=== PATIENT | female | born 1975 | race Caucasian/White ===

== ENCOUNTER 2017-03-07 18:52 | Emergency (ER) | payer OTHER ==
[2017-03-07] MEDS ORDERED: NS 500 ML IV ONE (19:16)
[2017-03-07] MEDS ORDERED: KETOROLAC 30 MG/1 ML SDV IVP ONE (19:16)
--- NOTE | 2017-03-07 19:19 | EDPHY ---
H & P Time Seen by Provider: 03/07/17 19:05 HPI/ROS: CHIEF COMPLAINT: Right upper quadrant pain HISTORY OF PRESENT ILLNESS: The patient is a 41-year-old female who presents emergency department with right upper quadrant pain starting at around 4:00 p.m. The patient states he had a diet Coke prior to the onset D does not feel this is related. She describes sharp stabbing pain in the right upper quadrant. This is worse when she takes a breath. She has not feel short of breath. She had no cough. She had mild nausea but no vomiting. No diarrhea. She has had mild urinary urgency with minimal frequency but no hematuria or dysuria. The patient denies flank pain. Pain does not radiate. She has had no fevers or chills. No leg pain or swelling. No recent travel. The patient has a history of ovarian cyst 1 month ago. REVIEW OF SYSTEMS: My complete review of systems is negative except as mentioned in the HPI. Past Medical/Surgical History: Ovarian cyst Past surgical history: Ureteral stent placed during Social history: The patient is . She denies tobacco or alcohol use Physical Exam: Vitals noted GENERAL: Well-appearing, in no acute distress, alert. HEENT: Eyes normal to inspection, normal pharynx, no signs of dehydration. NECK: No thyromegaly, no lymphadenopathy, supple. RESPIRATORY: Clear to auscultation bilaterally, no rales, rhonchi or wheezing. CVS: Regular rate and rhythm, no rubs, murmurs, or gallops. ABDOMEN: Soft, right upper quadrant tenderness to palpation, nondistended, no organomegaly. BACK: Normal to inspection, no CVA tenderness. SKIN: Normal color, no rash, warm, dry. No pallor. EXTREMITIES: No pedal edema, no calf tenderness, no Homans sign or cords, no joint swelling. NEURO/PSYCH: Alert and oriented x3, normal mood and affect, normal motor sensory exam. No obvious cranial nerve deficit. Constitutional: Initial Vital Signs Temperature (C) 36.7 C 03/07/17 18:53 Heart Rate 59 L 03/07/17 18:53 Respiratory Rate 16 03/07/17 18:53 Blood Pressure 123/80 H 03/07/17 18:53 O2 Sat (%) 99 03/07/17 18:53 O2 Delivery Mode Room Air Allergies/Adverse Reactions: No Known Allergies Allergy (Unverified 03/07/17 19:23) Home Medications: Medication Instructions Recorded NK [No Known Home Meds] 03/07/17 Medical Decision Making - Diagnostics Imaging Results: Imaging Impressions Abdomen Ultrasound 03/07/17 19:16 Impression: 1. No cholelithiasis or biliary ductal dilation. 2. Minimal pericholecystic fluid, without gallbladder wall thickening. 3. Minimal fluid inferior to the right lobe of the liver, without hydronephrosis. 4. Two hyperechoic lesions up to 1.1 cm, probably representing hemangiomata. Findings and recommendations discussed with Emergency Department physician, Mary Grace M.D., at 2123 hours, on March 07, 2017. Final report concurs with initial preliminary interpretation. Chest X-Ray 03/07/17 19:19 Impression: No acute pulmonary disease. ED Course/Re-evaluation: In the emergency department I discussed possible etiologies with the patient. I answered all her questions. An IV was placed and laboratory studies were obtained. I ordered an ultrasound of the right upper quadrant. Patient given Toradol 30 mg IV. She states that she is currently on her menses and there is no chance of . Chest x-ray: No acute disease noted. The patient's CBC was normal. Chemistry panel is unremarkable. The patient's LFTs were normal. Lipase normal. The patient's D-dimer is elevated at 0.7. I discussed the results with the patient. She states she felt much better after receiving the Toradol. Her pain has mostly resolved. She has no pain with deep breathing. I am awaiting ultrasound results. I discussed the case with both the patient and her who is an emergency physician. Ultrasound: For the dictated report by Dr. Eitan Green. The patient has small amount of free fluid surrounding the gallbladder. The gallbladder wall is normal. No gallstones present. Normal caliber common bile duct. I discussed the results with both Dr. Campos and the patient. I answered all her questions. Patient has to her history that she has been mildly short of breath over the past week. She attributed this to her son who would recently returned home. She also reports that over the past year she has intermittently had swelling of her left lower extremity. CT angiogram of the chest was ordered with the patient's consent. CT angio of the chest: Please refer the dictated report by Dr. Eitan Green. No acute disease noted. No visible sign of PE. I discussed the results with the patient and her . I answered all her questions. Patient will be discharged home. She is given warnings prior to leaving. She will return with worsening symptoms. Differential Diagnosis: My differential includes but is not limited to cholecystitis, cholangitis, pancreatitis, ureterolithiasis, urinary tract infection, pyelonephritis, pneumothorax, pulmonary embolus, pleurisy - Data Points Laboratory Results: Laboratory Results 03/07/17 19:10 03/07/17 19:10 03/07/17 03/07/17 03/07/17 19:15 19:10 19:10 WBC RBC Hgb Hct MCV MCH MCHC RDW Plt Count MPV Neut % (Auto) Lymph % (Auto) [place] % (Auto) Eos % (Auto) Baso % (Auto) Nucleat RBC Rel Count Absolute Neuts (auto) Absolute Lymphs (auto) Absolute Monos (auto) Absolute Eos (auto) Absolute Basos (auto) Absolute Nucleated RBC Immature Gran % Immature Gran # D-Dimer 0.70 ug/mLFEU H ug/mLFEU (0.00-0.50) Sodium Potassium Chloride Carbon Dioxide Anion Gap BUN Creatinine Estimated GFR Glucose Calcium Total Bilirubin Conjugated Bilirubin Unconjugated Bilirubin AST ALT Alkaline Phosphatase Total Protein Albumin Lipase Beta HCG, Qual NEGATIVE Urine Color PALE YELLOW Urine Appearance CLEAR Urine pH 6.0 (5.0-7.5) Ur Specific [place] 1.011 (1.002-1.030) Urine Protein NEGATIVE (NEGATIVE) Urine Ketones TRACE H (NEGATIVE) Urine Blood NEGATIVE (NEGATIVE) Urine Nitrate NEGATIVE (NEGATIVE) Urine Bilirubin NEGATIVE (NEGATIVE) Urine Urobilinogen NEGATIVE EU EU (0.2-1.0) Ur Leukocyte Esterase NEGATIVE (NEGATIVE) Urine RBC 3-5 /hpf H /hpf (0-3) Urine WBC 1-3 /hpf /hpf (0-3) Ur Epithelial Cells TRACE /lpf /lpf (NONE-1+) Urine Mucus TRACE /lpf /lpf (NONE-1+) Urine Glucose NEGATIVE (NEGATIVE) 03/07/17 03/07/17 19:10 19:10 WBC 7.08 10^3/uL 10^3/uL (3.80-9.50) RBC 4.29 10^6/uL 10^6/uL (4.18-5.33) Hgb 13.5 g/dL g/dL (12.6-16.3) Hct 38.8 % % (38.0-47.0) MCV 90.4 fL fL (81.5-99.8) MCH 31.5 pg pg (27.9-34.1) MCHC 34.8 g/dL g/dL (32.4-36.7) RDW 13.2 % % (11.5-15.2) Plt Count 156 10^3/uL 10^3/uL (150-400) MPV 12.4 fL H fL (8.7-11.7) Neut % (Auto) 53.2 % % (39.3-74.2) Lymph % (Auto) 37.4 % % (15.0-45.0) [place] % (Auto) 6.1 % % (4.5-13.0) Eos % (Auto) 2.3 % % (0.6-7.6) Baso % (Auto) 0.7 % % (0.3-1.7) Nucleat RBC Rel Count 0.0 % % (0.0-0.2) Absolute Neuts (auto) 3.77 10^3/uL 10^3/uL (1.70-6.50) Absolute Lymphs (auto) 2.65 10^3/uL 10^3/uL (1.00-3.00) Absolute Monos (auto) 0.43 10^3/uL 10^3/uL (0.30-0.80) Absolute Eos (auto) 0.16 10^3/uL 10^3/uL (0.03-0.40) Absolute Basos (auto) 0.05 10^3/uL 10^3/uL (0.02-0.10) Absolute Nucleated RBC 0.00 10^3/uL 10^3/uL (0-0.01) Immature Gran % 0.3 % % (0.0-1.1) Immature Gran # 0.02 10^3/uL 10^3/uL (0.00-0.10) D-Dimer Sodium 141 mEq/L mEq/L (134-144) Potassium 4.0 mEq/L mEq/L (3.5-5.2) Chloride 107 mEq/L mEq/L (97-110) Carbon Dioxide 21 mEq/l L mEq/l (22-31) Anion Gap 13 mEq/L mEq/L (8-16) BUN 25 mg/dL H mg/dL (7-23) Creatinine 0.9 mg/dL mg/dL (0.6-1.0) Estimated GFR > 60 Glucose 81 mg/dL mg/dL (70-100) Calcium 9.3 mg/dL mg/dL (8.5-10.4) Total Bilirubin 0.3 mg/dL mg/dL (0.1-1.4) Conjugated Bilirubin 0.2 mg/dL mg/dL (0.0-0.5) Unconjugated Bilirubin 0.1 mg/dL mg/dL (0.0-1.1) AST 29 IU/L IU/L (14-46) ALT 44 IU/L IU/L (9-52) Alkaline Phosphatase 54 IU/L IU/L (38-126) Total Protein 7.0 g/dL g/dL (6.3-8.2) Albumin 4.3 g/dL g/dL (3.5-5.0) Lipase 95 IU/L IU/L (23-300) Beta HCG, Qual Urine Color Urine Appearance Urine pH Ur Specific [place] Urine Protein Urine Ketones Urine Blood Urine Nitrate Urine Bilirubin Urine Urobilinogen Ur Leukocyte Esterase Urine RBC Urine WBC Ur Epithelial Cells Urine Mucus Urine Glucose Medications Given: Discontinued Medications Sodium Chloride (Ns) 500 mls @ 0 mls/hr IV EDNOW ONE; Wide Open PRN Reason: Protocol Stop: 03/07/17 19:17 Last Admin: 03/07/17 19:35 Dose: 500 mls Ketorolac Tromethamine (Toradol) 30 mg IVP EDNOW ONE Stop: 03/07/17 19:17 Last Admin: 03/07/17 19:34 Dose: 30 mg Departure - Departure Disposition: Home, Routine, Self-Care Clinical Impression: Right upper quadrant pain Condition: Good Instructions: Acute Abdominal Pain (ED) Additional Instructions: Return with increasing abdominal pain, recurrent vomiting, fever, shortness of breath, or any concerns. Referrals: ISAC MAYNARD [Other] - 2-3 days, call for appt.
[2017-03-07 19:50] LABS: PLATELET COUNT 156 10^3/uL (150-400)
[2017-03-07 20:34] VITALS: RESP 16
[2017-03-07] MEDS ORDERED: IOPAMIDOL (ISOVUE 370) 100 ML BTL IV ONE (21:32)
[2017-03-07 22:21] VITALS: BP 90/50; PULSE 48; TEMP 97.7; O2SAT 97
== END 2017-03-07 22:18 | disposition home or self-care (01) ==
DX: R10.11 Right upper quadrant pain (principal); E86.9 Volume depletion, unspecified
CPT/HCPCS: 96374; J1885; Q9967